=== PATIENT | female | born 1985 | race Asian ===

== ENCOUNTER 2017-03-16 11:20 | Emergency (ER) | payer BC, MEDICAID ==
[~2017-03-16] VITALS: Ht 152.4 cm; Wt 69.0 kg
[2017-03-16 11:23] VITALS: Ht 152.4 cm; Wt 69.0 kg
[2017-03-16 12:13] LABS: ADD UMIC YES; UR AMORPHOUS CRYSTAL MANY /HPF (NONE SEEN); UR ASCORBIC ACID 20 mg/dL (NEGATIVE); UR BACTERIA FEW /HPF (NONE SEEN); UR BILIRUBIN (Dip) NEGATIVE (NEGATIVE); UR BLOOD (Dip) 1+ mg/dL (NEGATIVE); UR CLARITY CLOUDY (CLEAR); UR COLOR YELLOW (YELLOW); UR GLUCOSE (Dip) NEGATIVE (NEGATIVE); UR KETONES (Dip) NEGATIVE (NEGATIVE); UR LEUKOCYTE ESTERASE (Dip) NEGATIVE Leu/ul (NEGATIVE); UR NITRITE (Dip) NEGATIVE (NEGATIVE); UR RBC 7 /HPF (0-5); UR SPECIFIC GRAVITY (Dip) 1.018 (1.003-1.030); UR TOTAL PROTEIN (Dip) NEGATIVE (NEGATIVE); UR UROBILINOGEN (Dip) NEGATIVE (NEGATIVE)
--- NOTE | 2017-03-16 12:16 | RADRPT ---
PROCEDURE: US OB. CLINICAL INDICATION: Vaginal bleeding TECHNIQUE: Transabdominal and transvaginal views of the pelvis are available for review. COMPARISON: No prior studies are available for comparison. FINDINGS: There is a single intrauterine gestation with the crown-rump length measuring 0.5 cm, corresponding to a gestational age of 6 weeks and 1 day. The heart tones are not identified. The ovaries are not visualized. There is a small amount of fluid in endometrial canal in the uterine segment. There is no free fluid. RPTAT: AA IMPRESSION: Single intrauterine with an estimated gestational age of 6 weeks and 1 day, based on ultra sound measurements. heart tones are not identified. The findings may represent demise versus early . Correlation with HCG levels and follow-up ultrasound is recommended. .Eddie Velazquez MD, Date Time Electronically viewed and signed by .Eddie Velazquez MD, on 03/16/2017 12:16 .S/
[2017-03-16 12:35] LABS: BASOPHILS % 0.5 % (0.0-2.0); EOSINOPHILS # 0.3 10^3/ul (0.0-0.5); EOSINOPHILS % 3.5 % (0.0-7.0); HEMATOCRIT 39.2 % (37.0-47.0); LYMPHOCYTES # 2.2 10^3/ul (0.8-2.9); LYMPHOCYTES % 27.6 % (15.0-51.0); MEAN CORPUSCULAR HEMOGLOBIN 30.4 pg (29.0-33.0); MEAN CORPUSCULAR HGB CONC 33.2 g/dl (32.0-37.0); MEAN CORPUSCULAR VOLUME 91.8 fl (82.0-101.0); MEAN PLATELET VOLUME 9.8 fl (7.4-10.4); MONOCYTE # 0.7 10^3/ul (0.3-0.9); MONOCYTES % 8.8 % (0.0-11.0); NEUTROPHIL # 4.8 10^3/ul (1.6-7.5); NEUTROPHILS % 59.4 % (39.0-77.0); PLATELET COUNT 263 10^3/UL (140-415); RED BLOOD COUNT 4.27 10^6/ul (4.20-5.40); RED CELL DISTRIBUTION WIDTH 13.1 % (11.5-14.5)
[2017-03-16] MEDS ORDERED: ACET500C5 PO (13:09)
--- NOTE | 2017-03-16 13:20 | ERD ---
ER Documentation Chief Complaint Chief Complaint SPOTTING X 4 DAYS , 9 WEEKS PREG , LMP 01/10/17 HPI 32-year-old female who is approximately 9 weeks presented to ED with vaginal spotting 4 days. Patient stated that the spotting has become progressively heavier, and she started having pelvic cramping today. Patient has an initial appointment with OB in 5 days. Denies fever or chills. Denies dysuria. Denies flank pain. ROS All systems reviewed and are negative except as per history of present illness. Medications Home Meds Active Scripts Acetaminophen* (Tylophen*) 500 Mg Capsule, 1 CAP PO Q6H Y for PAIN AND OR ELEVATED TEMP, #20 CAP Prov:DICK OSBORNE. MANAGER OF CORPORATE COMMUNICATIONS 03/16/17 Allergies Allergies: Coded Allergies: No Known Allergy (Unverified , 03/16/17) PMhx/Soc Medical and Surgical Hx: pt denies Medical Hx, pt denies Surgical Hx Hx Alcohol Use: No Hx Substance Use: No Hx Tobacco Use: No Smoking Status: Never smoker Physical Exam Vitals Vital Signs Date Time Temp Pulse Resp B/P Pulse Ox O2 Delivery O2 Flow Rate FiO2 03/16/17 11:23 98.1 74 18 113/63 99 Physical Exam General: Well-developed, well-nourished, conscious and coherent, in no distress Skin: Warm and dry without rash, good texture and turgor Head: Normocephalic without evidence of trauma Eyes: Sclera and conjunctivae normal; pupils equal, round, and reactive to light; extraocular movements are intact Chest: Normal AP diameter. Good expansion without retractions. Nontender. Lungs are clear to auscultate bilaterally with good tidal volume Heart: Regular rate and rhythm. No murmur, rub, or gallops heard Abdomen: Soft and nontender without masses, guarding, or rebound. Bowel sounds are active. No hepatosplenomegaly Back: Without spinal or CVA tenderness Pelvis: Mild pelvic tenderness Extremities: Full range of motion. Good strength bilaterally. No clubbing, cyanosis, or edema. Peripheral pulses are intact. Sensation intact Neuro: Alert and oriented 4, GCS 15. Cranial nerves grossly intact. Motor and sensory exams nonfocal. Moves all extremities. Speech clear. Gait normal Result Diagram: 03/16/17 1220 Results 24 hrs Laboratory Tests Test 03/16/17 11:45 03/16/17 12:20 Urine Color YELLOW Urine Clarity CLOUDY Urine pH 8.0 Urine Specific [place] 1.018 Urine Ketones NEGATIVEmg/dL Urine Nitrite NEGATIVEmg/dL Urine Bilirubin NEGATIVEmg/dL Urine Urobilinogen NEGATIVEmg/dL Urine Leukocyte Esterase NEGATIVELeu/ul Urine Microscopic RBC 7/HPF Urine Microscopic WBC 1/HPF Urine Amorphous Crystals MANY/HPF Urine Bacteria FEW/HPF Urine Hemoglobin 1+mg/dL Urine Glucose NEGATIVEmg/dL Urine Total Protein NEGATIVEmg/dl White Blood Count 8.010^3/ul Red Blood Count 4.2710^6/ul Hemoglobin 13.0g/dl Hematocrit 39.2% Mean Corpuscular Volume 91.8fl Mean Corpuscular Hemoglobin 30.4pg Mean Corpuscular Hemoglobin Concent 33.2g/dl Red Cell Distribution Width 13.1% Platelet Count 92566^3/UL Mean Platelet Volume 9.8fl Neutrophils % 59.4% Lymphocytes % 27.6% Monocytes % 8.8% Eosinophils % 3.5% Basophils % 0.5% Nucleated Red Blood Cells % 0.0/100WBC Neutrophils # 4.810^3/ul Lymphocytes # 2.210^3/ul Monocytes # 0.710^3/ul Eosinophils # 0.310^3/ul Basophils # 0.010^3/ul Nucleated Red Blood Cells # 0.010^3/ul Beta HCG, Quantitative 4053.5mIU/ml PROCEDURE: US OB. CLINICAL INDICATION: Vaginal bleeding TECHNIQUE: Transabdominal and transvaginal views of the pelvis are available for review. COMPARISON: No prior studies are available for comparison. FINDINGS: There is a single intrauterine gestation with the crown-rump length measuring 0.5 cm, corresponding to a gestational age of 6 weeks and 1 day. The heart tones are not identified. The ovaries are not visualized. There is a small amount of fluid in endometrial canal in the uterine segment. There is no free fluid. RPTAT: AA IMPRESSION: Single intrauterine with an estimated gestational age of 6 weeks and 1 day, based on ultrasound measurements. heart tones are not identified. The findings may represent demise versus early . Correlation with HCG levels and follow-up ultrasound is recommended. .Eddie Velazquez MD, MD Date Time Electronically viewed and signed by .Eddie Velazquez MD, MD on 03/16/2017 12: 16 .S/ CC: DICK OSBORNE MANAGER OF CORPORATE COMMUNICATIONS Procedures/MDM ED course: CBC: Unremarkable. Beta hC.5 UA: Plus hemoglobin, 7 RBC, many amorphous crystals. Blood type: Positive. RhoGAM is not indicated for patient. OB ultrasound: Single intrauterine with estimated gestational age of 6 weeks and 1 day, heart tones not identified. Medical decision-making: Well-appearing 32-year-old female who is approximately 9 weeks based on LMP presented to the ED for vaginal spotting and cramping. Ultrasound showed an intrauterine gestation with estimated age of 6 weeks 1 day by size, without heart tone. Beta hCG quant is significantly lower than expected for 9 weeks gestation, but within normal range for 6 weeks gestation. I think she is likely experiencing demise and impending portion. However, I cannot completely rule out early gestation of 6 weeks. Patient is advised to follow-up in the ED 2 days for repeat beta hCG quant testing. Patient has appointment with OB in 5 days. Patient advised to follow-up with her OB as scheduled. Patient appears well, stable for discharge and outpatient management. Medical decision making shared with patient and family. Education provided to patient and family. Patient and family expressed understanding of the plan. Medications on discharge: Tylenol. Follow-up: Primary care provider in 2 days or return to ED if worse. Disclaimer: Inadvertent spelling and grammatical errors are likely due to EHR/ dictation software use and do not reflect on the overall quality of patient care. Also, please note that the electronic time recorded on this note does not necessarily reflect the actual time of the patient encounter. Departure Diagnosis: Primary Impression: Vaginal bleeding in patient at less than 20 weeks ges... Condition: Stable Patient Instructions: Bleeding During Early Referrals: DOCTOR,NOT ON STAFF (PCP) COMMUNITY CLINICS YOU HAVE RECEIVED A MEDICAL SCREENING EXAM AND THE RESULTS INDICATE THAT YOU DO NOT HAVE A CONDITION THAT REQUIRES URGENT TREATMENT IN THE EMERGENCY DEPARTMENT. FURTHER EVALUATION AND TREATMENT OF YOUR CONDITION CAN WAIT UNTIL YOU ARE SEEN IN YOUR DOCTORS OFFICE WITHIN THE NEXT 1-2 DAYS. IT IS YOUR RESPONSIBILITY TO MAKE AN APPOINTMENT FOR [facility]- CARE. IF YOU HAVE A PRIMARY DOCTOR --you should call your primary doctor and schedule an appointment IF YOU DO NOT HAVE A PRIMARY DOCTOR YOU CAN CALL OUR PHYSICIAN REFERRAL HOTLINE AT IF YOU CAN NOT AFFORD TO SEE A PHYSICIAN YOU CAN CHOSE FROM THE FOLLOWING [facility] [place] [address] [facility] [address] [facility]. [facility] [address] [facility] [facility] [address] [facility]. [facility] [address] [facility]. [facility] [phone] [place] [employer] [address] [facility] [address] [place] [address] OFFICE FAX , [facility] [address] [place] [address] [address] [facility] [address] [place] [address] [address], [facility] [address] [facility], [address], [facility] [address] [address] [address] [place] [address] [facility] [address] [place] [address] [phone] [facility] [id number] - AURELIO GALLARDO [address], [facility] [address] [address] ALVAREZ, [place] [address] [facility]. [address], [place] [address] [address] [address] [place] [address] Additional Instructions: Return to this facility in 2 DAYS for a follow-up exam.Return sooner if your condition worsens. DICK OSBORNE. KATE Mar 16, 2017 13:20
[2017-03-16 13:37] VITALS: BP 116/65; PULSE 72
== END 2017-03-16 13:37 | disposition home or self-care (01) ==
LOC: FTE 11:20
DX: O20.9 Hemorrhage in early pregnancy, unspecified (principal); R10.2 Pelvic and perineal pain; Z3A.01 Less than 8 weeks gestation of pregnancy
CPT/HCPCS: 76801; 76817; 81001; 84702; 85025; 86900; 86901

== ENCOUNTER 2017-06-27 06:44 | Day surgery (SDC) | END 2017-06-27 08:15 | disposition home or self-care (01) ==

== ENCOUNTER 2017-07-02 06:40 | Day surgery (SDC) | END 2017-07-02 11:33 | disposition home or self-care (01) ==

== ENCOUNTER 2018-07-05 02:15 | Inpatient (IN) | payer BC ==
[~2018-07-05] VITALS: Ht 152.4 cm; Wt 82.9 kg
[~2018-07-05 02:15] MED LIST: CETI10TA19 PO
[2018-07-05 03:03] VITALS: Ht 152.4 cm; Wt 82.9 kg
[2018-07-05] MEDS: LACTATED RINGER'S 1,000 ML IV SCH ×2 (04:57→07:56)
[2018-07-05] MEDS ORDERED: METHYLERGONOVINE 0.2 MG INJ IM PRN ×2 (05:00→14:30)
[2018-07-05] MEDS ORDERED: MISOPROSTOL 200 MCG TAB PR PRN ×2 (05:00→14:30)
[2018-07-05] MEDS ORDERED: OXYTOCIN 30 UNITS/LR 500 ML IV PRN ×2 (05:00→14:30)
[2018-07-05] MEDS ORDERED: CEFAZOLIN 2 GM/50 ML (PMX) 50 ML IVPB SCH (05:00)
[2018-07-05] MEDS ORDERED: CARBOPROST 250 MCG INJ IM PRN ×2 (05:00→14:30)
--- NOTE | 2018-07-05 07:25 | TRIAGE ---
OB Triage Datetime Report Generated by CPN: 07/05/2018 07:25 Datetime: 07/05/2018 06:45 Stage of : Labor Labor Evaluation Frequency: 3-5 Monitor Mode: External Duration (sec)2399: 60-80 Quality: Mild Pattern: Normal: <= 5 Contractions in 10 Minutes Resting Tone [place]: Relaxed Heart Rate FHR Baseline Rate: 135 Monitor Mode: External US Variability: Moderate 6-25 bpm Accelerations: 15X15 Decelerations: None Comments: some loss of contact when pt on side Datetime: 07/05/2018 05:45 Stage of : Labor Labor Evaluation Frequency: 3-5 Monitor Mode: External Duration (sec)2399: 60-80 Quality: Mild Pattern: Normal: <= 5 Contractions in 10 Minutes Resting Tone [place]: Relaxed Heart Rate FHR Baseline Rate: 135 Monitor Mode: External US Variability: Moderate 6-25 bpm Accelerations: 15X15 Decelerations: None Category: Category I Datetime: 07/05/2018 04:52 Assessment Type: Admission Assessment Vaginal Bleeding: None Maternal Assessment Level of Consciousness: Fully Conscious DTR's/Clonus: DTRs 2+; No Clonus Headache: Denies Blurred Vision: No Respiratory Effort: Unlabored; Regular Rhythm; Equal Expansion Breath Sounds, Left: Clear and Equal Breath Sounds, Right: Clear and Equal Nausea/Vomiting: Denies RUQ Epigastric Pain: Denies Lower Extremities Edema: None Degree: None Upper Extremities Edema: None Degree: None Facial Edema: None Fall Risk Assessment History of Falling: (0) No Secondary Diagnosis: (0) No Ambulatory Aid: (0) Bedrest/Nurse Assist IV Therapy: (20) Yes Gait: (0) Normal/Bedrest/Immobile Mental Status: (0) Oriented to Own Ability Fall Score: 20 Fall Risk Score Definition: No Risk: No action required Labor Evaluation Frequency: 1.5-3 Duration (sec)2399: 40-60 Quality: Mild Pattern: Normal: <= 5 Contractions in 10 Minutes Resting Tone [place]: Relaxed Heart Rate FHR Baseline Rate: 145 Variability: Moderate 6-25 bpm Accelerations: 15X15 Decelerations: None Category: Category I Pain Assessment Pain Scale: 7 Pain Presence: Intermittent Pain Type: Contraction Pain Location: Abdomen; Back Pain Goal: 3 Membrane Status: Intact Datetime: 07/05/2018 04:19 Stage of : Labor Datetime: 07/05/2018 04:00 Stage of : Labor Labor Evaluation Frequency: 2-3.5 Monitor Mode: External Duration (sec)2399: 40-110 Quality: Mild Pattern: Normal: <= 5 Contractions in 10 Minutes Resting Tone [place]: Relaxed Heart Rate FHR Baseline Rate: 130 Monitor Mode: External US Variability: Moderate 6-25 bpm Accelerations: 15X15 Decelerations: None Category: Category I Datetime: 07/05/2018 03:57 Stage of : Labor Datetime: 07/05/2018 03:56 Stage of : Labor Datetime: 07/05/2018 03:26 Stage of : OB Triage Datetime: 07/05/2018 03:00 Labor Evaluation Frequency: 3-6 Monitor Mode: External Pattern: Normal: <= 5 Contractions in 10 Minutes Heart Rate FHR Baseline Rate: 135 Monitor Mode: External US FHR Baseline Changes: No Baseline Change Variability: Moderate 6-25 bpm Accelerations: 15X15 Datetime: 07/05/2018 02:51 Vaginal Exam Dilatation (cms): 1.0 Effacement (%): 40 Station: -3 Exam By: GSTRATTON Datetime: 07/05/2018 02:31 Time of Arrival: 07/05/2018 04:51 EGA: 38.1 Arrived By: Wheelchair Arrived From: Emergency Dept Datetime: 07/05/2018 02:30 Stage of : OB Triage Assessment Type: Triage Time of Arrival: 07/05/2018 02:05 Arrived By: Ambulatory Arrived From: Home Chief Complaint: UC'S Movement: Present Contractions: Occasional Time Contractions Began: 07/04/2018 23:00 Contractions: ? Rupture of Membranes: Denies Vaginal Bleeding: None Vaginal Discharge: Denies Recent Sexual Intercouse: Denies Abdominal Trauma: Not Applicable Patient Complaints: Contractions Time Provider Notified: 07/05/2018 03:49 Provider Notified: Initial Plan: EFM, SVE, CALL OB Maternal Assessment Level of Consciousness: Fully Conscious Headache: Denies Blurred Vision: No Respiratory Effort: Unlabored; Regular Rhythm; Equal Expansion Nausea/Vomiting: Denies RUQ Epigastric Pain: Denies Facial Edema: None Fall Risk Assessment History of Falling: (0) No Secondary Diagnosis: (0) No Ambulatory Aid: (0) Bedrest/Nurse Assist IV Therapy: (0) No Gait: (0) Normal/Bedrest/Immobile Mental Status: (0) Oriented to Own Ability Fall Score: 0 Fall Risk Score Definition: No Risk: No action required Datetime: 07/05/2018 02:22 Stage of : OB Triage Temperature Route: Oral Monitor Mode: External Monitor Mode: External US
--- NOTE | 2018-07-05 07:49 | PREAC ---
Date/Time of Note Date/Time of Note DATE: 07/05/18 TIME: 07:48 Anesthesia Eval and Record Evaluation Time Pre-Procedure Interview DATE: 07/05/18 TIME: 07:48 Age 33 Sex female NPO: 8 hrs Preoperative diagnosis intrauterine Planned procedure repeat c section Past Medical History Past Medical History: Includes : : (4), Para: (1), Gestational age: (38+), Gestational diabetes Surgery & Anesthesia Issues No known issue Meds Anticoagulation: No Beta Kellen within 24 hr: No Reason Beta Kellen not given: Pt. not on B-Kellen Reported Medications Cetirizine Hcl* (Cetirizine Hcl*) 10 Mg Tablet, 10 MG PO DAILY, #30 TAB 07/02/17 Current Medications Lactated Ringer's 1,000 ml @ 125 mls/hr Q8H IV Last administered on 07/05/18at 04:57; Admin Dose 125 MLS/HR; Start 07/05/18 at 04:44 Cefazolin Sodium/ Dextrose 50 ml @ 100 mls/hr ONCE IVPB ; Start 07/05/18 at 05:00 Oxytocin/Lactated Ringer's 500 ml @ 125 mls/hr POST IV ; Start 07/05/18 at 05:00 Oxytocin/Lactated Ringer's 500 ml @ 0 mls/hr ONCE PRN IV .VAGINAL BLEEDING; Start 07/05/18 at 05:00 Methylergonovine Maleate (Methergine) 0.2 mg ONCE PRN IM .VAGINAL BLEEDING; Start 07/05/18 at 05:00 Carboprost Tromethamine (Hemabate) 250 mcg ONCE PRN IM .VAGINAL BLEEDING; Start 07/05/18 at 05:00 Misoprostol (Cytotec) 1,000 mcg ONCE PRN AR .VAGINAL BLEEDING; Start 07/05/18 at 05:00 Meds reviewed: Yes Allergies Coded Allergies: No Known Allergy (Unverified , 07/05/18) Allergies Reviewed: Yes Labs/Studies Labs Reviewed: Reviewed by anesthesiologist Result Diagram: 07/05/18 0419 07/05/18 0419 Laboratory Tests 07/05/18 04:19 Blood Bank Test 07/05/18 04:19 Antibody Screen NEGATIVE Blood Type B POSITIVE Rh Immune Globulin Candidate NO test: N/A Pre-procedure Exam Airway: Adequate mouth opening, Adequate thyromental dist Mallampati: Mallampati II Teeth: Normal Lung: Normal Heart: Normal ASA Physical Status ASA physical status: 2 Emergency: None Planned Anesthetic Neuraxial: Spinal Planned Pain Management Sub-arachniod narcotics, Parenteral pain med Pre-operative Attestations Prior to commencing anesthesia and surgery, the patient was re-evaluated, there was verification of: *The patient's identity *The results of appropriate recent lab work and preoperative vital signs *The above evaluation not changing prior to induction *Anesthetic plan, risk benefits, alternative and complications discussed with patient/family; questions answered; patient/family understands, accepts and wishes to proceed. FRANCE VICTOR MD Jul 05, 2018 07:49
[2018-07-05] MEDS ORDERED: LACTATED RINGER'S 1,000 ML IV ONE (07:56)
[2018-07-05] MEDS ORDERED: FAMOTIDINE 20 MG INJ IV ONE (08:00)
[2018-07-05] MEDS ORDERED: CITRIC ACID/NA CITRATE 30 ML CUP PO ONE (08:00)
[2018-07-05] MEDS ORDERED: METOCLOPRAMIDE 10 MG INJ IV ONE (08:00)
[2018-07-05] MEDS ORDERED: morphine SULFATE/PF (10 MG/10 ML) INJ ONE (08:36)
[2018-07-05] MEDS ORDERED: PHENYLephrine (100 MCG/ML) 10ML SYG ONE (08:53)
[2018-07-05] MEDS ORDERED: ONDANSETRON 4 MG INJ ONE (09:12)
[2018-07-05] MEDS ORDERED: MIDAZOLAM 1 MG/ML 2 ML INJ ONE ×2 (09:20→09:34)
[2018-07-05] MEDS ORDERED: FENTAnyl 50 MCG/ML VIAL ONE (09:23)
[2018-07-05] MEDS ORDERED: OXYTOCIN 30 UNITS/LR 500 ML IV ONE (09:24)
[2018-07-05] MEDS ORDERED: HYDROmorphONE 0.5 MG/0.5 ML SYG IV PRN (09:30)
[2018-07-05] MEDS ORDERED: FENTAnyl 50 MCG/ML VIAL IV PRN ×3 (09:30)
[2018-07-05] MEDS ORDERED: KETOROLAC 30 MG INJ IV PRN (09:30)
[2018-07-05] MEDS ORDERED: ONDANSETRON 4 MG INJ IV PRN ×3 (09:30→14:30)
[2018-07-05] MEDS ORDERED: PROCHLORPERAZINE 10 MG INJ IV PRN (09:30)
[2018-07-05] MEDS ORDERED: EPHEDrine SULFATE 50 MG/5 ML SYG IV PRN (09:30)
[2018-07-05] MEDS ORDERED: NALOXONE (0.4 MG/ML) INJ IV PRN (09:30)
[2018-07-05] MEDS ORDERED: HYDROmorphONE 1 MG/5 ML IV SYRINGE IV PRN ×3 (09:30)
[2018-07-05] MEDS ORDERED: MEPERIDINE 25 MG INJ IV PRN (09:30)
[2018-07-05] MEDS ORDERED: ZOLPIDEM 5 MG TAB PO PRN ×2 (09:30→14:30)
[2018-07-05] MEDS ORDERED: DIPHENHYDRAMINE 50 MG INJ IV PRN ×3 (09:30→14:30)
[2018-07-05] MEDS ORDERED: DIPHENHYDRAMINE 50 MG INJ ONE (10:14)
[2018-07-05] MEDS ORDERED: KETOROLAC 30 MG INJ ONE (10:17)
[2018-07-05] MEDS ORDERED: NALBUPHINE HCL (10 MG/1 ML) INJ IV PRN ×2 (10:30)
--- NOTE | 2018-07-05 10:50 | PAC ---
Date/Time of Note Date/Time of Note DATE: 07/05/18 TIME: 10:49 Post-Anesthesia Notes Post-Anesthesia Note Activity: WNL Respiratory function: WNL Cardiovascular function: WNL Mental status: Baseline Pain reasonably controlled: Yes Hydration appropriate: Yes Nausea/Vomiting absent: Yes Comments BP: 106/68 HR: 85 RR: 15 T: 98 SaO2: 97% FRANCE EASLEY MD Jul 05, 2018 10:50
[2018-07-05] MEDS: OXYTOCIN 30 UNITS/LR 500 ML IV SCH ×2 (11:02→15:05)
[2018-07-05] MEDS: KETOROLAC 30 MG INJ IV PRN (11:22)
--- NOTE | 2018-07-05 12:18 | OPPN ---
Date/Time of Note Date/Time of Note DATE: 07/05/18 TIME: 12:14 Operative Report Planned Procedure Procedure date Jul 05, 2018 Procedure(s) RLTCS Performed by see signature line Form Setter Steel Pan Forms: LILIANA LOAIZA MD 2nd Form Setter Steel Pan Forms none Anesthesiologist: FRANCE VICTOR MD Pre-procedure diagnosis IUP 38w2d with previous c/s in labor [id number] Anesthesia Type: Ndsoq5a spinal Post-Procedure Post-procedure diagnosis same as above delivered normal female infant Findings Live Baby [f], Apgars [8] and [9], weight [7lb2oz], position [llot ], [vx] presentation [no]cord. Estimated Blood Loss: 500 - 600 mls Specimen(s) none Grafts/Implant(s) none Complication(s) none TONYA SMITH MD Jul 05, 2018 12:18
[2018-07-05] MEDS: HYDROmorphONE 0.5 MG/0.5 ML SYG IV PRN ×2 (12:20→16:57)
--- NOTE | 2018-07-05 12:36 | HP ---
Date/Time of Note Date/Time of Note DATE: 07/05/18 TIME: 12:28 OB - History Hx of Present Free Text/Dictation 33y.o who had x1 c/s at 38w1d with uc's q 3-6min with intact membrane. CAT I tracing VE /-3 prepare for repeat c/s. Chief Complaint: uc,s Estimated Due Date: Jul 18, 2018 : 4 Para: 1 Spontaneous : 2 Therapeutic : 0 Care: Good Care Ultrasounds: Normal mid trimester US Obstetrical Complications: None Medical Complications: None Past Family/Social History * Past Medical, Surgical, Family and Obstetric Histories reviewed from chart. Blood Type: B+ Rubella: immune RPR/VDRL: Negative GBS Status: Negative HBsAG: Negative OB Admission Exam Physical Exam HEENT: WNL Heart: Rhythm Normal Lungs: Clear, Equal Abdomen: WNL Extremities: Normal Reflexes: Normal Cervical Dilatation: 1cm Effacement: 50% Station: -3 Membranes: Intact Amniotic Fluid: Unevaluable Heart Rate: 140's Accelerations: Accelerations Present Decelerations: No Decelerations Varibility: Moderate Contractions on Admission: < 5 Minutes Apart Intensity: Mild Last 72 hours Lab Results CBC & BMP 07/05/18 04:19 OB Assessment/Plan Other Assessment: IUP 38w2d with prevous c/s in early labor Plan: Section TONYA SMITH MD Jul 05, 2018 12:36
[2018-07-05 13:55] VITALS: BP 103/57; PULSE 68; RESP 18
[2018-07-05] MEDS ORDERED: LACTATED RINGER'S 1,000 ML IV SCH (14:17)
[2018-07-05 14:30] VITALS: BP 126/72; PULSE 73; RESP 17
[2018-07-05] MEDS ORDERED: LANOLIN HPA 1 PKT TOP PRN (14:30)
[2018-07-05] MEDS ORDERED: OXYCODONE/ACETAMINOPHEN (5/325) TAB PO PRN (14:30)
[2018-07-05] MEDS: CEFAZOLIN 2 GM/50 ML (PMX) 50 ML IVPB SCH ×2 (15:04→21:56)
[2018-07-05 15:15] VITALS: BP 106/70; PULSE 62; RESP 18
[2018-07-05 19:50] VITALS: BP 98/64; PULSE 71; RESP 18
[2018-07-05] MEDS: SENNA/DOCUSATE NA (8.6MG/50MG) TAB PO SCH (20:31)
[2018-07-06 00:24] VITALS: BP 116/67; PULSE 80; RESP 18
[2018-07-06] MEDS: KETOROLAC 30 MG INJ IV PRN (02:46)
[2018-07-06 04:15] VITALS: BP 112/72; PULSE 76; RESP 18
[2018-07-06] MEDS: CEFAZOLIN 2 GM/50 ML (PMX) 50 ML IVPB SCH ×2 (05:20→14:22)
[2018-07-06 07:50] VITALS: BP 99/62; PULSE 81; RESP 20
[2018-07-06] MEDS: SENNA/DOCUSATE NA (8.6MG/50MG) TAB PO SCH ×2 (09:19→20:16)
[2018-07-06] MEDS: OXYCODONE/ACETAMINOPHEN (5/325) TAB PO PRN ×3 (09:27→18:42)
[2018-07-06] MEDS: IBUPROFEN 600 MG TAB PO SCH ×3 (12:36→23:58)
[2018-07-06] MEDS: PROMETHAZINE (1.25 MG/ML) 5 ML CUP PO PRN (15:23)
[2018-07-06 15:55] VITALS: BP 120/72; PULSE 85; RESP 20
[2018-07-06 20:10] VITALS: BP 117/69; PULSE 82; RESP 18
--- NOTE | 2018-07-06 20:23 | QN ---
Documentation Comment c/o coughing with green phlegm passing flatus abdomen tympanic wound dry lochia min calf neg for tenderness A stable POD {Rc/s)#1 P as ordered TONYA SMITH MD Jul 06, 2018 20:23
[2018-07-06] MEDS ORDERED: AZITHROMYCIN 500MG/NS (PMX) 250 ML IVPB ONE (21:00)
[2018-07-06] MEDS ORDERED: AZITHROMYCIN 250 MG TAB PO ONE (22:30)
[2018-07-07] MEDS: OXYCODONE/ACETAMINOPHEN (5/325) TAB PO PRN ×3 (00:43→20:42)
--- NOTE | 2018-07-07 01:32 | OPR ---
DATE OF OPERATION: 07/05/2018 PREOPERATIVE DIAGNOSES: , 38 weeks 2 days with a previous section, in labor. POSTOPERATIVE DIAGNOSES: Delivered, normal female . Baby weighed 7 pounds 2 ounces. Apgars 8 and 9. OPERATION PERFORMED: Repeat low transverse section. ANESTHESIA: Spinal. ANESTHESIOLOGIST: Dr. Moreno. a BUSINESS LIBRARIAN: Dr. Parry. SURGEON: Dr. Leonela Caban. ESTIMATED BLOOD LOSS: Approximately 550 mL. DESCRIPTION OF PROCEDURE: Under proper induction of spinal anesthesia, the patient was placed in fro g position. Rankin catheter was introduced into the bladder under sterile condition, repositioned to supine position. Abdominal wall was prepped and draped in usual aseptic manner. A transverse incisi on was made along the previous incisional scar. Scar tissue was excised. Incision was carried down through the subcutaneous tissue to the anterior recti fascia which was incised transversely in length of the incision. Fascial flap was created by blunt and sharp dissection of tendinous attachment upw vandana and two rectus muscles split in the midline. Peritoneal cavity was entered. Bladder blade was i ntroduced. There was a small adhesion from the omentum to the right side of parietal peritoneum. Bl adder blade was introduced and then a transverse incision was made above the uterovesical reflection, and the incision was carried down layer by layer, reached the amniotic membrane, ruptured, revealed clear amniotic fluid; and normal female was born from the left occiput transverse position. M outh and nose were cleaned and cord was delayed clamped and cut and handed to the respiratory care [facility] for further care. Baby weighed 7 pounds 2 ounces. was 8 and 9. Cord blood was obtain ed. The placenta was removed manually and the uterus was exteriorized and cavity was completely expl ored. Uterine incision was closed using #1 chromic catgut in continuous manner on the first layer an d second layer using 0 chromic catgut in continuous manner, including uterine serosa. No bleeder was noted. The uterus was relocated into the abdominal cavity after the abdominal cavity was irrigated with water. Uterine incisional site was rechecked and the omental adhesion on the right parietal rosalva e which was clamped and cut, and the pedicle was ligated with 0 chromic catgut. After the sponge cou nts were correct 3 times and the parietal peritoneum was closed using 0 chromic catgut in continuous manner, muscle was closed with 0 chromic catgut in continuous manner. Fascia was closed with #1 Vicr yl in continuous manner in two segments, and the subcutaneous tissue irrigated with water. This laye r was approximated with a 2-0 plain in continuous manner after adequate hemostasis was secured. Skin was closed with 3-0 Monocryl in subcuticular manner. Steri-Strip applied, a pressure dressing appli ed. Estimated blood loss approximately 550 mL. The patient withstood the procedure well, and sent t o the recovery room in stable condition. Urine output was 340 mL. Dictated By: LEONELA VALLEJO/SHARI Conf#: [id number] DID#: [id number] CC: LILIANA PARRY MD;*EndCC*
[2018-07-07 04:00] VITALS: BP 101/59; PULSE 75; RESP 18
[2018-07-07] MEDS: IBUPROFEN 600 MG TAB PO SCH ×4 (06:22→23:37)
[2018-07-07] MEDS: SENNA/DOCUSATE NA (8.6MG/50MG) TAB PO SCH ×2 (09:00→20:36)
[2018-07-07 09:10] VITALS: BP 125/73; PULSE 90; RESP 17
[2018-07-07] MEDS: AZITHROMYCIN 250 MG TAB PO SCH (09:28)
[2018-07-07] MEDS: PROMETHAZINE (1.25 MG/ML) 5 ML CUP PO PRN (15:42)
[2018-07-07 16:00] VITALS: BP 112/76; PULSE 74; RESP 18
[2018-07-07 20:00] VITALS: BP 123/75; PULSE 82; RESP 18
[2018-07-07] MEDS ORDERED: PROMETHAZINE (1.25 MG/ML) 5 ML CUP PO PRN (23:45)
[2018-07-07] MEDS ORDERED: PROMETHAZINE (1.25 MG/ML PO SYG) PO PRN ×2 (23:45)
[2018-07-08] MEDS: OXYCODONE/ACETAMINOPHEN (5/325) TAB PO PRN ×2 (00:39→08:00)
[2018-07-08 03:33] VITALS: BP 112/70; PULSE 80; RESP 18
[2018-07-08] MEDS: IBUPROFEN 600 MG TAB PO SCH ×2 (05:26→11:49)
[2018-07-08] MEDS: SENNA/DOCUSATE NA (8.6MG/50MG) TAB PO SCH (07:44)
[2018-07-08 08:30] VITALS: BP 125/66; PULSE 88; RESP 20
[2018-07-08] MEDS ORDERED: DIPHTH/TET/ACEL PERTUSS (ADULT) 0.5 ML VIAL IM* ONE (09:00)
--- NOTE | 2018-07-08 09:14 | PD.PPDC ---
OFFAL ICER POULTRY Discharge Instruction Condition Ovrod2Ee Patient Condition: Xlxxk0m Good Diet [id number] Diet: Hwzpu4e Resume Regular Diet Activity/Restrictions Sfeug8Ri Activity: Bvfee1b Bedrest May be up to bathroom May be up for meals May Shower Mvanr6Bt Restrictions: Vboig3y No Exercising No Lifting No Driving Minimize Walking Minimize Stair-climbing No Sexual Activity Nothing in the Vagina No [place] No Tampons, douche Wound/Drain Care Instructions Gmyod0Ae Wound/Drain Care Mhhmt7r Remove Steri Strips in 2 Instructions: weeks Keep clean and dry Follow-up Follow-up with Physician: 2, Week/Weeks Return to clinic for Yddrs9Os HOUSE PLAYER Instructions: Ejtyy2d Fever greater than 101 Chills Worsening abdominal pain Excessive Vaginal Bleeding Tqrdt6Cm OB Instructions: Jnkgy9i Breast Tenderness Depression Welwl3Qn Surgical Instructions: Emvro0w Incisional Drainage Incisional Redness AURELIO HALL MD Jul 08, 2018 09:14
--- NOTE | 2018-07-08 09:16 | DS ---
Date/Time of Note Date/Time of Note DATE: 07/08/18 TIME: 09:14 Obstetrical Discharge Record Final Diagnosis Final Diagnosis: Term delivered Section Section: Repeat Complications Augmentation: No Induction: No Condition on Discharge Physical Assessment Last Vitals: T=97.7 BP 123/75 Voiding: Yes Bowel Movement: Yes Breast: Filling Fundus: Firm Abdomen and Incision: Incision is clean, dry and intact. Calf Tenderness: No Patient Condition: Good AURELIO HALL MD Jul 08, 2018 09:16
[2018-07-08] MEDS: AZITHROMYCIN 250 MG TAB PO SCH (09:55)
== END 2018-07-08 12:27 | disposition home or self-care (01) | DRG 788 ==
LOC: OBT 02:15 → L-D 02:17 → OBT 03:49 → L-D 08:10 → PP1 14:14
PROVIDERS: ADMIT Obstetrics & Gynecology; ATTEND Obstetrics & Gynecology
PROC: 10D00Z1 Extraction of Products of Conception, Low, Open Approach (ICD-10-PCS; principal; 2018-07-05 08:00)
DX: O34.211 Maternal care for low transverse scar from previous cesarean delivery (principal); Z3A.38 38 weeks gestation of pregnancy; Z37.0 Single live birth
CPT/HCPCS: 36415; 76815; 81003; 82947; 85025; 85610; 85730; 86592; 86850; 86900; 86901; 87086; 87340; 88305; 90686; 90715; 99464; G0463; J0456; J0690; J1170; J1200; J1885; J2250; J2274; J2300; J2370; J2405; J2590; J2765; J3010; J7120